=== PATIENT | male | born 1990 | race Caucasian/White ===

== ENCOUNTER 2017-06-27 11:00 | Day surgery (SDC) | payer OTHER ==
[2017-06-25 17:06] VITALS: BMI 29.5
--- NOTE | 2017-06-27 08:05 | HP ---
History & Physical Update - History History: No Change - Physical Physical: No Change - Assessment Assessment: No Change - Plan Plan: No Change (For lap chuck possible open; r/b/t/a's d/w the patient pre-op in the office and informed consent to be obtained pre-op today; all ?'s answered.)
[2017-06-27] MEDS ORDERED: BUPIVACAINE HCL/PF 0.5% (5MG/ML) 10 ML VIAL ONE (11:18)
[2017-06-27] MEDS ORDERED: fentaNYL CITRATE 250 MCG/5 ML VIAL ONE (11:39)
[2017-06-27] MEDS ORDERED: PROPOFOL 20 ML ONE ×2 (11:40)
[2017-06-27] MEDS ORDERED: MIDAZOLAM HCL 2 MG/2 ML SINGLE DOSE VIAL ONE (11:40)
[2017-06-27] MEDS ORDERED: ROCURONIUM BROMIDE 50 MG/5 ML VIAL ONE (11:40)
[2017-06-27] MEDS ORDERED: ceFAZolin SODIUM 1 GM VIAL IVPB ONE (12:27)
[2017-06-27] MEDS ORDERED: DEXAMETHASONE SOD PHOSPHATE 4 MG/1 ML VIAL ONE (12:55)
[2017-06-27] MEDS ORDERED: NEOSTIGMINE METHYLSULFATE 0.5 MG/ML - 10 ML MDV ONE ×2 (13:45)
[2017-06-27] MEDS ORDERED: GLYCOPYRROLATE 0.2 MG/1 ML VIAL ONE (13:46)
--- NOTE | 2017-06-27 14:18 | OP ---
Operative Note - Note: Operative Date: 06/27/17 Pre-Operative Diagnosis: cholelithiasis/chronic cholecystitis Operation: laparoscopic cholecystectomy Findings: chronic cholecystitis/cholelithiasis Post-Operative Diagnosis: Same as Pre-op Surgeon: Geraldo De Guzman Edi Developer: Andria Feldman Anesthesiologist/FORMULA ROOM WORKER: Jacquelyn Hansen Anesthesia: General Specimens Removed: gallbladder and contents Estimated Blood Loss (mls): 15
--- NOTE | 2017-06-27 14:24 | SURG ---
Surgery Computer Systems Technology Instructor Note Computer Systems Technology Instructor: Andria Feldman PA-C Date of Service: 06/27/17 Diagnosis: cholelithiasis/chronic cholecystitis Procedure: Laparoscopic cholecystectomy I was present for the entirety of the operative procedure. For further detail, please refer to operative report. Visit type - Case Type Case Type: Scheduled Admission - New patient This patient is new to me today: Yes Date on this admission: 06/27/17
[2017-06-27] MEDS ORDERED: ONDANSETRON 4 MG/2 ML VIAL IVPUSH PRN (14:26)
[2017-06-27] MEDS ORDERED: oxyCODONE HCL 5 MG TABLET PO PRN (14:26)
[2017-06-27] MEDS ORDERED: LACTATED RINGERS SOLUTION 1,000 ML IV SCH (14:30)
[2017-06-27] MEDS ORDERED: ACETAMINOPHEN 325 MG TABLET (FP) ONE (16:06)
[2017-06-27 18:07] VITALS: BP 148/81; PULSE 52
[2017-06-27 20:50] VITALS: TEMP 98.6
--- NOTE | 2017-06-30 14:53 | PATH ---
Surgical Pathology Report Patient Name: GABY GALDAMEZ [facility]. Rec. #: [id number] /Age/Gender: 1990 (Age: 26) / M Account: [id number] Location: [facility] SURGICAL Taken: 06/27/2017 Received: 06/27/2017 Reported: 06/30/2017 Physicians: Geraldo De Guzman MD Specimen(s) Received GALLBLADDER Clinical History Cholelithiasis, chronic cholecystitis Final Diagnosis GALLBLADDER, LAPAROSCOPIC CHOLECYSTECTOMY: CHRONIC CHOLECYSTITIS AND CHOLELITHIASIS. ONE BENIGN PERIDUCTAL LYMPH NODE (0/1). Electronically Signed Kylah Aaron M.D. Gross Description Received in formalin, labeled "gallbladder," is a 9.2 x 2.3 x 2.3 cm. gallbladder with a 0.2 cm. in length portion of cystic duct attached. There is a 0.8 cm greatest dimension delaney periductal lymph node present. The outer surface is delaney-pink and varies from smooth to shaggy. The lumen contains yellow, sludge like bile as well as multiple yellow, irregular to fragmented choleliths ranging from 0.1-0.6 cm in greatest dimension. The mucosa is delaney and eroded. The wall of the gallbladder averages 0.1 cm. in thickness. Tower Erector Helper sections are submitted in one cassette. 06/27/201706/27/2017
--- NOTE | 2017-07-01 11:09 | OP ---
DATE OF OPERATION: 06/27/2017 PREOPERATIVE DIAGNOSES: Cholelithiasis, chronic cholecystitis. POSTOPERATIVE DIAGNOSES: Cholelithiasis, chronic cholecystitis. PROCEDURE: Laparoscopic cholecystectomy. SURGEON: Geraldo De Guzman MD MANAGEMENT ENGINEER: Andria Feldman PA-C ANESTHESIA: General. OPERATIVE FINDINGS: Chronic cholecystitis and cholelithiasis. The rest of the findings were unremarkable. DESCRIPTION OF PROCEDURE: The patient was placed on the operating table in the supine position, and after the induction of general anesthesia, the patient's abdomen was prepped with ChloraPrep and draped in sterile fashion. A timeout was taken and pneumoperitoneum established above the umbilicus using a Veress needle to an intraabdominal pressure of 15 mmHg. Subsequently, a 5-mm port was placed above the umbilicus, as well as two lateral 5-mm ports and a subxiphoid 12-mm port. Laparoscopy was carried out, and the previously noted findings were observed. The gallbladder was placed on cephalad and lateral traction, and the adherent omentum was taken down using blunt dissection and electrocautery. The neck of the gallbladder was identified and retracted laterally and dissection begun in the hepatocystic triangle. The peritoneum over the neck of the gallbladder was opened medial and laterally using electrocautery and blunt dissection, and the cystic duct identified and dissected proximally and distally for length and encircled. The cystic artery was similarly identified and dissected as well. A critical view of safety was taken, and then, the cystic duct milked proximally and two large hemoclips placed distally and 2 clips proximally, and the duct divided using the EndoShears. The artery was similarly clipped and divided. The gallbladder was then removed in a retrograde fashion from the liver bed using electrocautery. Prior to removal from the edge of the liver, hemostasis was checked for and noted to be good, and then, the gallbladder removed from the edge of the liver, placed in an Endo Catch and brought out through the subxiphoid port. Pneumoperitoneum was re-established, hemostasis verified, and then, all ports removed under laparoscopic vision without evidence of bleeding from the port sites. The pneumoperitoneum was evacuated, and all port sites were infiltrated with 0.50% Marcaine and the skin edges closed in all cases using 4-0 Monocryl in a subcuticular, continuous fashion. Steri-Strips and Band-Aid dressings were placed and the procedure terminated at this point. The patient aroused from general anesthesia and transferred to the postanesthesia care unit in stable condition, awake and alert. ESTIMATED BLOOD LOSS: 15 mL REPLACEMENTS: Crystalloid. DRAINS: None. SPECIMENS: Gallbladder and contents to Pathology. I, Geraldo De Guzman MD, was physically present in the operating room from the time the patient was placed on the operating table until he was transferred to the postanesthesia care unit in my accompaniment. MD SARAH Owens/[id number]
== END 2017-06-27 18:10 | disposition home or self-care (01) ==
LOC: JASU-SURG 11:00
PROVIDERS: ATTEND Surgery
PROC: 0FT44ZZ Resection of Gallbladder, Percutaneous Endoscopic Approach (ICD-10-PCS; principal; 2017-06-27 12:30)
DX: K80.10 Calculus of gallbladder with chronic cholecystitis without obstruction (principal)
CPT/HCPCS: 86850; 86900; 86901; 88304-TC